=== PATIENT | female | born 1950 | race Two or more races ===

== ENCOUNTER 2018-01-03 08:45 | Outpatient (CLI) | payer OTHER | END 2018-01-03 08:57 | disposition home or self-care (01) | LOC: NUCLEAR 08:45 | DX: M12.9 Arthropathy, unspecified (principal); M19.90 Unspecified osteoarthritis, unspecified site | CPT/HCPCS: 78315; A9503 ==

== ENCOUNTER 2024-08-20 11:06 | Emergency (ER) | payer OTHER ==
[~2024-08-20] VITALS: Ht 165.1 cm; Wt 49.9 kg
[2024-08-20] MEDS ORDERED: MEMANTINE HCL E28 MG (12:34)
[2024-08-20] MEDS ORDERED: LOSARTAN POTASS50 MG (12:34)
[2024-08-20] MEDS ORDERED: LEVOTHYROXINE50 MCG (12:34)
[2024-08-20] MEDS ORDERED: ESCITALOPRAM OX20 MG (12:34)
[2024-08-20] MEDS ORDERED: IBANDRONATE SO150 MG (12:35)
[2024-08-20] MEDS ORDERED: BENZONATATE 200 MG CAPSULE PO ONE (13:00)
[2024-08-20] MEDS ORDERED: METHYLPREDNISOLONE SOD SUCC 40 MG VIAL IM ONE (13:00)
[2024-08-20] MEDS ORDERED: LEVALBUTEROL HCL 1.25 MG/3 ML SOLUTION IH ONE ×2 (13:00→14:02)
[2024-08-20] MEDS ORDERED: IPRATROPIUM BROMIDE 0.5 MG/2.5 ML AMPUL.NEB IH ONE ×2 (13:00→14:03)
[2024-08-20] MEDS ORDERED: METHYLPREDNISOLONE SOD SUCC 40 MG VIAL ONE (13:06)
[2024-08-20 13:52] LABS: HEMATOCRIT 38.5 % (36.0-45.00); MEAN CELL VOLUME 96.8 fL (80.00-100.00); MEAN CORPUSCULAR HEMOGLOBIN 32.7 pg (27.00-32.0); MEAN CORPUSCULAR HGB CONC 33.8 g/dl (32.0-36.0); PLATELET COUNT 158 K/uL (150-450); RED BLOOD COUNT 3.98 M/uL (4.00-6.00); RED CELL DISTRIBUTION WIDTH 12.9 % (11.5-14.5)
[2024-08-20 14:54] LABS: BILIRUBIN TOTAL 0.66 mg/dL (0.3-1.2); CALCIUM 9.6 mg/dL (8.5-10.1); CREATININE SERUM 0.66 mg/dL (0.55-1.02); GFR 87.54; GLOBULINA 3.8 G/DL (2.4-3.5); POTASSIUM 4.04 mEq/L (3.5-5.1); TOTAL PROTEIN 7.8 gm/dL (6.4-8.2)
[2024-08-20 15:32] LABS: URINE APPEARANCE Clear; URINE BILIRRUBIN Negative (NEGATIVE); URINE BLOOD Moderate; URINE COLOR Yellow; URINE GLUCOSE Negative (NEGATIVE); URINE KETONE Negative (NEGATIVE); URINE LEUKOCYTE Small; URINE NITRATE Negative; URINE PROTEIN Trace (NEGATIVE); URINE UROBILINOGEN 0.2 E.U./dl
[2024-08-20 15:36] LABS: URINE BACTERIA 411.2 uL (0.0-1933); URINE EPITHELIAL CELLS 5.2 uL (0.0-38.8); URINE RBC 204.4 uL (0.0-20.8)
[2024-08-20 15:44] LABS: URINE CAST 0.14 uL (0.0-1.40)
== END 2024-08-20 17:07 | disposition home or self-care (01) ==
LOC: ER 11:08
PROVIDERS: General Practice
DX: J00 Acute nasopharyngitis [common cold] (principal); R05.9 Cough, unspecified; Z20.822 Contact with and (suspected) exposure to COVID-19; I10 Essential (primary) hypertension; E03.8 Other specified hypothyroidism
CPT/HCPCS: 36415; 71046; 94640; 96372; 99283; J3490

== ENCOUNTER 2025-07-18 18:16 | Emergency (ER) | payer OTHER ==
[~2025-07-18] VITALS: Ht 162.6 cm; Wt 60.3 kg
[~2025-07-18 18:16] MED LIST: ESCITALOPRAM OX20 MG; IBANDRONATE SO150 MG; LEVOTHYROXINE50 MCG; LOSARTAN POTASS50 MG; MEMANTINE HCL E28 MG
[2025-07-18 19:21] VITALS: BP 203/98; O2SAT 98
[2025-07-18] MEDS ORDERED: BISOPROLOL FUMAR5 MG PO (19:28)
[2025-07-18] MEDS ORDERED: OMEPRAZOLE40 MG PO (19:32)
[2025-07-18] MEDS ORDERED: MIRTAZAPINE15 MG PO (19:32)
[2025-07-18] MEDS ORDERED: ROSUVASTATIN CA10 MG PO (19:33)
[2025-07-18] MEDS ORDERED: AMLODIPINE BESYL5 MG PO (19:33)
[2025-07-18] MEDS ORDERED: MEMANTINE HCL E14 MG PO (19:35)
[2025-07-18] MEDS ORDERED: MIDAZOLAM IJ (19:35)
[2025-07-18] MEDS ORDERED: IBANDRONATE SO150 MG PO (19:36)
[2025-07-18] MEDS ORDERED: 0.9 % SODIUM CHLORIDE 1,000 ML IV STA (19:59)
[2025-07-18 22:09] LABS: BASO % 0.3 % (0.1-1.2); EOS # 0.04 (0.04-0.54); EOS % 0.7 % (0.7-7.0); LYMPH # 0.91 (1.18-3.74); LYMPH % 15.5 % (19.3-53.1); MEAN PLATELET VOLUME 11.20 fl (9.4-12.4); MONO # 0.57 (0.24-0.82); MONO % 9.7 % (4.7-12.5); NEUT # 4.33 (1.56-6.13); NEUT % 73.6 % (34.0-71.1); RED CELL DISTRIBUTION WIDTH 11.9 % (11.6-14.4)
[2025-07-18 22:18] LABS: ERYTHROCYTE SEDIMENTATION RATE 64 mm/hr (0-30)
[2025-07-18 22:31] LABS: INR 0.99
[2025-07-18 22:37] LABS: ALT/SGPT 32.0 U/L (12-78); AST/SGOT 21.0 U/L (15-37); BILIRUBIN TOTAL 0.75 mg/dL (0.3-1.2); BUN CREA RATIO 24.0 (7.0-25.0); CREATININE SERUM 0.75 mg/dL (0.55-1.02); GFR 75.33; GLOBULINA 3.8 G/DL (2.4-3.5); GLUCOSE FASTING 111.0 mg/dL (65-100); OSMOLALITY SERUM 284.0 MOSM/KG (275-295)
[2025-07-18 23:03] LABS: URINE APPEARANCE Clear; URINE BILIRRUBIN Negative (NEGATIVE); URINE BLOOD Large; URINE COLOR Yellow; URINE GLUCOSE Negative (NEGATIVE); URINE KETONE Negative (NEGATIVE); URINE LEUKOCYTE Large; URINE NITRATE Negative; URINE PROTEIN 30 (NEGATIVE); URINE UROBILINOGEN 0.2 E.U./dl
[2025-07-18 23:09] LABS: URINE BACTERIA 845.2 uL (0.0-1933); URINE EPITHELIAL CELLS 7.0 uL (0.0-38.8); URINE RBC 299.1 uL (0.0-20.8); URINE WBC 174.1 uL (0.0-23.2)
[2025-07-18 23:13] LABS: URINE CAST 0.14 uL (0.0-1.40)
[2025-07-18] MEDS ORDERED: CEFTRIAXONE SODIUM 2,000 MG VIAL IV ONE (23:30)
[2025-07-18] MEDS ORDERED: CEFTRIAXONE SODIUM 2,000 MG VIAL ONE (23:45)
[2025-07-19] MEDS ORDERED: MACROBID 100 M100 MG PO (00:21)
[2025-07-19] MEDS ORDERED: ATARAX25 MG PO (00:21)
== END 2025-07-19 02:27 | disposition home or self-care (01) ==
LOC: ER 18:17
PROVIDERS: Physician Assistant Medical
DX: I16.1 Hypertensive emergency (principal); G30.8 Other Alzheimer's disease; F02.80 Dementia in other diseases classified elsewhere, unspecified severity, without behavioral disturbance, psychotic disturbance, mood disturbance, and anxiety; F41.8 Other specified anxiety disorders; I10 Essential (primary) hypertension; E03.8 Other specified hypothyroidism; M81.8 Other osteoporosis without current pathological fracture; K21.9 Gastro-esophageal reflux disease without esophagitis; E78.00 Pure hypercholesterolemia, unspecified; N39.0 Urinary tract infection, site not specified